=== PATIENT | female | born 1985 | race Caucasian/White ===

== ENCOUNTER 2016-09-25 13:45 | Emergency (ER) | payer OTHER ==
[2016-09-25] MEDS ORDERED: IBUPROFEN 600 MG TAB PO ONE (14:21)
--- NOTE | 2016-09-25 14:25 | EDPHY ---
H & P Time Seen by Provider: 09/25/16 14:04 HPI/ROS: CHIEF COMPLAINT: Fever, vomiting, headache. HISTORY OF PRESENT ILLNESS: The patient is a 31-year-old female who presents with fever, vomiting, headache, and myalgia for the past 2 days. The HASTINGS is moderate and persistent and worsens when fever occurs. The myalgias are moderate in extremities and back. She admits associated congestion, occasional nonproductive cough, and rhinorrhea. She is tolerating oral fluids well, but vomits after she eats. Associated with fatigue. No diarrhea or shortness of breath. She did not get a flu shot year. Breast-feeding currently. REVIEW OF SYSTEMS: A complete 10-point review of systems was performed and is negative except for those items mentioned in the HPI. Past Medical/Surgical History: Post-op constipation requiring hospitalization. Social History: Nonsmoker. Smoking Status: Never smoked Physical Exam: General Appearance: Alert, nontoxic-appearing, pleasant Eyes: Pupils equal and round, no conjunctival pallor or injection ENT, Mouth: Mucous membranes moist Neck: Normal inspection, supple Respiratory: Lungs are clear to auscultation Cardiovascular: Regular rate and rhythm Gastrointestinal: Abdomen is soft and nontender Neurological: Alert, oriented x3, cranial nerves II through XII intact, motor 5 /5, sensory intact to light touch, normal gait. Skin: Warm and dry, no rash Extremities: normal inspection Psychiatric: Mood and affect normal Constitutional: Initial Vital Signs Temperature (C) 37.5 C 09/25/16 13:58 Heart Rate 118 H 09/25/16 13:58 Respiratory Rate 20 09/25/16 13:58 Blood Pressure 102/76 09/25/16 13:58 O2 Sat (%) 95 09/25/16 13:58 O2 Delivery Mode Room Air Allergies/Adverse Reactions: No Known Allergies Allergy (Verified 09/25/16 13:57) Home Medications: Medication Instructions Recorded BENADRYL 09/25/16 Ondansetron Odt [Zofran Odt 4 mg 4 mg PO Q4 PRN #6 tab 09/25/16 (*)] Oseltamivir Phosphate [Tamiflu 75 75 mg PO BID #9 cap 09/25/16 mg (RX)] Medical Decision Making ED Course/Re-evaluation: Clinical presentation consistent with influenza during this influenza season. I do not suspect that she has a serious bacterial infection such as pneumonia or meningitis. An IV was established and labs ordered including flu swab. 600mg PO Ibuprofen and 650mg PO Acetaminophen administered for fever and myalgia. 1L IV saline for hydration, 30mg IV Toradol for pain, and 4mg IV Zofran administered for nausea. Patient positive for influenza. She has been instructed to alternate Tylenol and Ibuprofen every 3 hours. Tamiflu prescribed for the patient and her family. Differential Diagnosis: Differential diagnosis includes UTI, pyelonephritis, pneumonia, cholecystitis, cellulitis. - Data Points Laboratory Results: Laboratory Results 09/25/16 14:30 09/25/16 14:30 09/25/16 09/25/16 09/25/16 14:30 14:30 14:30 WBC 6.45 10^3/uL 10^3/uL (3.80-9.50) RBC 4.23 10^6/uL 10^6/uL (4.18-5.33) Hgb 14.1 g/dL g/dL (12.6-16.3) Hct 40.9 % % (38.0-47.0) MCV 96.7 fL fL (81.5-99.8) MCH 33.3 pg pg (27.9-34.1) MCHC 34.5 g/dL g/dL (32.4-36.7) RDW 11.9 % % (11.5-15.2) Plt Count 205 10^3/uL 10^3/uL (150-400) MPV 10.8 fL fL (8.7-11.7) Neut % (Auto) 79.9 % H % (39.3-74.2) Lymph % (Auto) 6.8 % L % (15.0-45.0) Garrard % (Auto) 12.9 % % (4.5-13.0) Eos % (Auto) 0.0 % L % (0.6-7.6) Baso % (Auto) 0.2 % L % (0.3-1.7) Nucleat RBC Rel Count 0.0 % % (0.0-0.2) Absolute Neuts (auto) 5.16 10^3/uL 10^3/uL (1.70-6.50) Absolute Lymphs (auto) 0.44 10^3/uL L 10^3/uL (1.00-3.00) Absolute Monos (auto) 0.83 10^3/uL H 10^3/uL (0.30-0.80) Absolute Eos (auto) 0.00 10^3/uL L 10^3/uL (0.03-0.40) Absolute Basos (auto) 0.01 10^3/uL L 10^3/uL (0.02-0.10) Absolute Nucleated RBC 0.00 10^3/uL 10^3/uL (0-0.01) Immature Gran % 0.2 % % (0.0-1.1) Immature Gran # 0.01 10^3/uL 10^3/uL (0.00-0.10) Sodium 135 mEq/L mEq/L (134-144) Potassium 4.7 mEq/L mEq/L (3.5-5.2) Chloride 102 mEq/L mEq/L (97-110) Carbon Dioxide 21 mEq/l L mEq/l (22-31) Anion Gap 12 mEq/L mEq/L (8-16) BUN 9 mg/dL mg/dL (7-23) Creatinine 0.6 mg/dL mg/dL (0.6-1.0) Estimated GFR > 60 Glucose 80 mg/dL mg/dL (70-100) Calcium 9.0 mg/dL mg/dL (8.5-10.4) Influenza Typ A,B (DFA) POSITIVE FOR FLU A H (NEGATIVE) Medications Given: Discontinued Medications Acetaminophen (Tylenol) 650 mg PO EDNOW ONE Stop: 09/25/16 14:28 Last Admin: 09/25/16 14:40 Dose: 650 mg Sodium Chloride (Ns) 1,000 mls @ 0 mls/hr IV ONCE ONE PRN Reason: Wide Open Stop: 09/25/16 14:29 Last Admin: 09/25/16 14:41 Dose: 1,000 mls Sodium Chloride (Ns) 1,000 mls @ 0 mls/hr IV ONCE ONE PRN Reason: Wide Open Stop: 09/25/16 15:15 Last Admin: 09/25/16 15:15 Dose: 1,000 mls Ibuprofen (Motrin) 600 mg PO EDNOW ONE Stop: 09/25/16 14:22 Last Admin: 09/25/16 14:44 Dose: Not Given Ketorolac Tromethamine (Toradol) 30 mg IVP EDNOW ONE Stop: 09/25/16 14:28 Last Admin: 09/25/16 14:41 Dose: 30 mg Ondansetron HCl (Zofran) 4 mg IVP EDNOW ONE Stop: 09/25/16 14:28 Last Admin: 09/25/16 14:41 Dose: 4 mg Oseltamivir Phosphate (Tamiflu) 75 mg PO EDNOW ONE Stop: 09/25/16 15:29 Last Admin: 09/25/16 15:50 Dose: 75 mg Departure - Departure Disposition: Home, Routine, Self-Care Clinical Impression: Influenza A Condition: Good Instructions: Influenza (ED) Additional Instructions: Alternate 600mg Ibuprofen and 650mg Acetaminophen every 3 hours as needed for fever and body aches. Drink plenty of fluids and be sure to get rest. Follow up with your primary care provider in the next 3-4 days if symptoms are not improving. If you need a primary care provider you were provided the telephone number of one. Return to the emergency department for any serious worsening of condition. Referrals: Renee Roche MD [Medical Doctor] - As per Instructions Prescriptions: Ondansetron Odt [Zofran Odt 4 mg (*)] 4 mg PO Q4 PRN #6 tab PRN Reason: Nausea Oseltamivir Phosphate [Tamiflu 75 mg (RX)] 75 mg PO BID #9 cap Report Scribed for: Miri Silver Report Scribed by: Warren Tabor Date of Report: 09/25/16 Time of Report: 14:26 Physician Review and Approval Statement: 09/25/16 14:26 Portions of this note were transcribed by a medical delivery technician. I personally performed a history, physical exam, medical decision making, and confirmed accuracy of information the transcribed note.
[2016-09-25] MEDS ORDERED: ONDANSETRON 4 MG/2 ML VIAL IVP ONE (14:27)
[2016-09-25] MEDS ORDERED: KETOROLAC 30 MG/1 ML SDV IVP ONE (14:27)
[2016-09-25] MEDS ORDERED: ACETAMINOPHEN 325 MG TAB PO ONE (14:27)
[2016-09-25] MEDS ORDERED: NS 1,000 ML IV ONE ×2 (14:28→15:14)
[2016-09-25 14:39] LABS: % IMMATURE GRANULYOCYTES 0.2 % (0.0-1.1); ABSOLUTE IMMATURE GRANULOCYTES 0.01 10^3/uL (0.00-0.10); ADD DIFF? NO; ADD MORPH? NO; ADD SCAN? NO; ATYPICAL LYMPHOCYTE FLAG 20 (0-99); FRAGMENT RBC FLAG 0 (0-99); HEMATOCRIT 40.9 % (38.0-47.0); HEMOGLOBIN 14.1 g/dL (12.6-16.3); LEFT SHIFT FLG 0 (0-99); LIPEMIA HEMOLYSIS FLAG 90 (0-99); MEAN CELL HEMOGLOBIN 33.3 pg (27.9-34.1); MEAN CELL HEMOGLOBIN CONCENTR. 34.5 g/dL (32.4-36.7); MEAN CELL VOLUME 96.7 fL (81.5-99.8); MEAN PLATELET VOLUME 10.8 fL (8.7-11.7); PLATELET CLUMPS FLAG 10 (0-99); PLATELET COUNT 205 10^3/uL (150-400); RED BLOOD CELL COUNT 4.23 10^6/uL (4.18-5.33); RED CELL DISTRIBUTION WIDTH 11.9 % (11.5-15.2)
[2016-09-25 14:59] LABS: ANION GAP 12 mEq/L (8-16); CARBON DIOXIDE 21 mEq/l (22-31); CHLORIDE 102 mEq/L (97-110); CREATININE 0.6 mg/dL (0.6-1.0); GLOMERULAR FILTRATION RATE > 60; GLUCOSE 80 mg/dL (70-100); POTASSIUM 4.7 mEq/L (3.5-5.2); SODIUM 135 mEq/L (134-144)
[2016-09-25] MEDS ORDERED: OSELTAMIVIR PHOSPHATE 75 MG CAP PO ONE (15:28)
[2016-09-25 16:58] VITALS: BP 91/55; PULSE 98; RESP 14; TEMP 98.8; O2SAT 94
== END 2016-09-25 16:50 | disposition home or self-care (01) ==
DX: J10.1 Influenza due to other identified influenza virus with other respiratory manifestations (principal)
CPT/HCPCS: 96374; J1885; J2405